=== PATIENT | female | born 1945 ===

== ENCOUNTER 2018-06-24 00:44 | Emergency (ER) | payer MEDICARE ==
[2018-06-24 04:01] VITALS: RESP 18
[2018-06-24 04:19] VITALS: BP 122/67; PULSE 89; TEMP 98
[2018-06-24 04:21] VITALS: O2SAT 98
--- NOTE | 2018-06-24 04:21 | ED PDOC ---
HPI: Skin/Bite Injury Time Seen by Provider: 06/24/18 04:00 Chief Complaint (Nursing): Abnormal Skin Integrity Chief Complaint (Provider): Abnormal Skin Integrity History Per: Patient History/Exam Limitations: no limitations Current Symptoms Are (Timing): Better Location Of Injury: Right: Ankle Additional Complaint(s): 73 year old female with a history of osteoporosis, osteoarthritis and varicose veins presents to the ED for evaluation of varicose vein rupture. Patient reports while in the shower she began to experience severe bleeding from the varicose vein on her right ankle. She reports no obvious trauma before the incident, but did notice a small puncture wound. The profuse bleeding resolved on arrival to the ED. Denies shortness of breath, chest pain, leg pain and swelling. PMD: none provided Past Medical History Reviewed: Historical Data, Nursing Documentation, Vital Signs Vital Signs: Last Vital Signs Temp 98.5 F 06/24/18 01:00 Pulse 104 H 06/24/18 01:00 Resp 18 06/24/18 01:00 BP 127/69 06/24/18 01:00 Pulse Ox 98 06/24/18 01:00 - Medical History PMH: Arthritis (Bilateral knee), Osteoporosis - Surgical History Surgical History: No Surg Hx - Family History Family History: States: Unknown Family Hx - Social History Current smoker - smoking cessation education provided: No Alcohol: None Drugs: Denies - Allergies Allergies/Adverse Reactions: Allergies Allergy/AdvReac Type Severity Reaction Status Date / Time No Known Allergies Allergy Verified 06/24/18 04:01 Review of Systems ROS Statement: Except As Marked, All Systems Reviewed And Found Negative Constitutional: Negative for: Fever, Chills, Other (obvious trauma) Cardiovascular: Negative for: Chest Pain Respiratory: Negative for: Shortness of Breath Musculoskeletal: Negative for: Leg Pain, Foot Pain, Other (leg swelling) Skin: Positive for: Other (right ankle bleeding from rupture varicose vein) Physical Exam - Reviewed Nursing Documentation Reviewed: Yes Vital Signs Reviewed: Yes - Physical Exam Appears: Positive for: Non-toxic, No Acute Distress Head Exam: Positive for: ATRAUMATIC, NORMAL INSPECTION, NORMOCEPHALIC Skin: Positive for: Normal Color, Warm, Dry Eye Exam: Positive for: EOMI, Normal appearance, PERRL Cardiovascular/Chest: Positive for: Regular Rate, Rhythm. Negative for: Murmur Respiratory: Positive for: Normal Breath Sounds. Negative for: Respiratory Distress Extremity: Positive for: Normal ROM (upper and lower extremities), Other (small puncture wound over decompressed varicose vein at right ankle). Negative for: Swelling (or active bleeding) Neurologic/Psych: Positive for: Alert, Oriented (x 3). Negative for: Motor/Sensory Deficits - ECG O2 Sat by Pulse Oximetry: 98 (RA) Pulse Ox Interpretation: Normal Medical Decision Making Medical Decision Makin:00 Impression: 73 year old female s/p varicose vein rupture Initial Plan: --Gel foam dressing applied to wound. Patient requires no further treatment and is stable for discharged. Advised to follow up with PMD. Scribe Attestation: Documented by Maritza Villalba acting as a scribe for Micahel Haines MD Provider Scribe Attestation: All medical record entries made by the Scribe were at my direction and personally dictated by me. I have reviewed the chart and agree that the record accurately reflects my personal performance of the history, physical exam, medical decision making, and the department course for this patient. I have also personally directed, reviewed, and agree with the discharge instructions and disposition. Disposition - Clinical Impression Clinical Impression: Ruptured varicose vein - Patient ED Disposition Is Patient to be Admitted: No - Disposition Disposition: Routine/Home Disposition Time: 01:00 Condition: STABLE Forms: [employer] (Khmer)
== END 2018-06-24 04:10 | disposition home or self-care (01) ==
LOC: H.ER 00:44
DX: I83.90 Asymptomatic varicose veins of unspecified lower extremity (principal); M81.0 Age-related osteoporosis without current pathological fracture